=== PATIENT | male | born 1965 | race Caucasian/White ===

== ENCOUNTER 2021-09-02 10:15 | Day surgery (SDC) | payer OTHER ==
[~2021-09-02] VITALS: Ht 188 cm; Wt 95.3 kg
[~2021-09-02 10:15] MED LIST: ALBU90OI61 INH; CYCL10 PO; FLUSAL2505 INH; FOLI1 PO; GABA100 PO; HYDR1TAB94 PO; LORA1; OLAN2.5 PO; OXYACE5T PO; Omeprazole20 M1 PO; PROM25 PO; RANI150 PO
[2021-09-02] MEDS ORDERED: CYCL10 PO (11:22)
[2021-09-02] MEDS ORDERED: ALPR.5 PO (11:22)
[2021-09-02] MEDS ORDERED: QVAR REDIHALE10.6 G2 IH (11:23)
[2021-09-02] MEDS ORDERED: Percocet 5-3251 EACH PO (11:23)
[2021-09-02] MEDS ORDERED: PSEU120ER PO (11:23)
[2021-09-02] MEDS ORDERED: HYDPAM25 PO (11:24)
[2021-09-02] MEDS ORDERED: Triamcinolone A15 G2 TOP (11:24)
[2021-09-02] MEDS ORDERED: ALBU8HFA2 INH (11:24)
--- NOTE | 2021-09-02 11:30 | NUR ---
09/02/21 1130 Awa Matamoros PT AWAKE, ALERT, OREINTED. PT STATES THAT HE HAS HISTORY OF PHYCHOSYMATIC DISORDER. PT STATES HIS BODY WILL ALL OF THE SUDDEN JUST FREEZE DUE TO STRESS OR ANXIETY. PT VS WNL. PT COMMUNICATES CLEARLY. PT RESTING IN BED WITH CALL LIGHT IN HAND.
--- NOTE | 2021-09-02 13:05 | NUR ---
09/02/21 1305 Radha Bales 1 MG EPI ADDED TO EACH OF THE FIRST 3 BAGS OF LR PER ORDER FOR IRRIGATION.
--- NOTE | 2021-09-02 15:23 | NUR ---
09/02/21 1523 SAAR MCGUIRE PT WAS ALERT AND ORIENTED TOLERATING NUTRITION NO NAUSEA OR PAIN VITALS STABLE SEE VITAL STRIP EDUATION PROVIDE LUNG HYGIENE, ANKLE PUMPS AND EDUCTAION FOR DVT/ LUNG COMPLICATION PREVENTION, SIGNS AND SX TO NOTIFY DR. PT GIVEN WRITTEN AND VERBAL INSTRUCTIONS AFTER GOING OVER THEM WITH HIM AND HIS EX / RIDE HOME. POLAR PACK PROVIDE AND INCENTIVE SPIROMETER.
== END 2021-09-02 15:00 | disposition home or self-care (01) ==
LOC: ORSCSDS 10:15
PROVIDERS: Orthopaedic Surgery
PROC: 0LS44ZZ Reposition Left Upper Arm Tendon, Percutaneous Endoscopic Approach (ICD-10-PCS; principal; 2021-09-02 12:15)
PROC: 0RNK4ZZ Release Left Shoulder Joint, Percutaneous Endoscopic Approach (ICD-10-PCS; principal; 2021-09-02 12:15)
PROC: 0LQ24ZZ Repair Left Shoulder Tendon, Percutaneous Endoscopic Approach (ICD-10-PCS; principal; 2021-09-02 12:15)
PROC: 0PBB4ZZ Excision of Left Clavicle, Percutaneous Endoscopic Approach (ICD-10-PCS; principal; 2021-09-02 12:15)
DX: M75.112 Incomplete rotator cuff tear or rupture of left shoulder, not specified as traumatic (principal); M75.22 Bicipital tendinitis, left shoulder; M75.42 Impingement syndrome of left shoulder; M19.012 Primary osteoarthritis, left shoulder; J45.909 Unspecified asthma, uncomplicated; I25.2 Old myocardial infarction; F41.9 Anxiety disorder, unspecified; E78.00 Pure hypercholesterolemia, unspecified; Z79.899 Other long term (current) drug therapy
CPT/HCPCS: C1713; J0171; J0690; J1100; J1885; J2250; J2405; J2704; J2710; J3010; J7120